=== PATIENT | male | born 1980 | race Caucasian/White ===

== ENCOUNTER 2021-01-25 06:56 | Day surgery (SDC) | payer OTHER, SELFPAY ==
[~2021-01-25] VITALS: Ht 162.6 cm; Wt 73.9 kg
[2021-01-25] MEDS ORDERED: fentaNYL CITRATE/PF 100 MCG/2 ML AMP ONE (08:07)
[2021-01-25] MEDS ORDERED: SIMETHICONE 40 MG/0.6 ML ML ONE (08:07)
[2021-01-25] MEDS ORDERED: MIDAZOLAM HCL 5 MG/5 ML VIAL ONE ×2 (08:08→08:19)
[2021-01-25 12:04] VITALS: BP_SYST 112
== END 2021-01-25 09:10 | disposition home or self-care (01) ==
LOC: SDS 06:56 → SMU 06:58 → SDS 09:10
PROVIDERS: ATTEND Surgery
DX: R10.13 Epigastric pain (principal); K29.50 Unspecified chronic gastritis without bleeding; Z79.899 Other long term (current) drug therapy; Z20.822 Contact with and (suspected) exposure to COVID-19
CPT/HCPCS: 43239; 88305; 88312; 88313; G0378; J2250; J3010; U0003